=== PATIENT | male | born 1960 | race Caucasian/White ===

== ENCOUNTER → 2016-04-18 | Outpatient (CLI) | payer MEDICARE, OTHER ==
[~2016-04-18] MED LIST: ACET-784 PO; ALPR0.5T8 PO; AMLO-512 PO; AUD NEB; BISA10S PR; CARV6 PO; CLON.1 PO; CLOT15C TP; DSS100 PO; EPOE10I SQ; FERR-89 PO; FOLI1 PO; FURO40 PO; GLIP5 PO; HYDR50 PO; INSNOV SQ; INSU100I21 SQ; LACHLOT TP; LIRA0.6P SQ; LORA10TA7 PO; METH10 PO; MULT1CAP32 PO; OMEP20 PO; SULF1TAB41 PO
[2016-04-18 09:48] VITALS: BP 164/81
== END | disposition home or self-care (01) ==
LOC: HBOWC 09:35
PROVIDERS: ATTEND Emergency Medicine
DX: T87.81 Dehiscence of amputation stump (principal); E11.621 Type 2 diabetes mellitus with foot ulcer; L97.524 Non-pressure chronic ulcer of other part of left foot with necrosis of bone; E11.52 Type 2 diabetes mellitus with diabetic peripheral angiopathy with gangrene; E11.69 Type 2 diabetes mellitus with other specified complication; M86.18 Other acute osteomyelitis, other site; E11.22 Type 2 diabetes mellitus with diabetic chronic kidney disease; I12.9 Hypertensive chronic kidney disease with stage 1 through stage 4 chronic kidney disease, or unspecified chronic kidney disease; N18.9 Chronic kidney disease, unspecified; Z99.2 Dependence on renal dialysis; B35.1 Tinea unguium; E46 Unspecified protein-calorie malnutrition; Y83.5 Amputation of limb(s) as the cause of abnormal reaction of the patient, or of later complication, without mention of misadventure at the time of the procedure
CPT/HCPCS: 97597

== ENCOUNTER → 2016-05-02 | Outpatient (CLI) | payer MEDICARE, OTHER ==
[2016-05-02 10:43] VITALS: BP 109/80
== END | disposition home or self-care (01) ==
LOC: HBOWC 09:54
PROVIDERS: ATTEND Emergency Medicine
DX: E11.621 Type 2 diabetes mellitus with foot ulcer (principal); E11.52 Type 2 diabetes mellitus with diabetic peripheral angiopathy with gangrene; L97.522 Non-pressure chronic ulcer of other part of left foot with fat layer exposed; E11.69 Type 2 diabetes mellitus with other specified complication; M86.172 Other acute osteomyelitis, left ankle and foot; I12.9 Hypertensive chronic kidney disease with stage 1 through stage 4 chronic kidney disease, or unspecified chronic kidney disease; N18.9 Chronic kidney disease, unspecified; B35.1 Tinea unguium; I42.9 Cardiomyopathy, unspecified; G58.8 Other specified mononeuropathies; E11.42 Type 2 diabetes mellitus with diabetic polyneuropathy; Z89.9 Acquired absence of limb, unspecified
CPT/HCPCS: 11044; 97597